=== PATIENT | female | born 1980 | race Caucasian/White ===

== ENCOUNTER 2016-07-02 15:12 | Outpatient (CLI) | payer OTHER | END 2016-07-02 15:13 | disposition home or self-care (01) | DX: Z01.812 Encounter for preprocedural laboratory examination (principal); N94.4 Primary dysmenorrhea; N92.0 Excessive and frequent menstruation with regular cycle ==

== ENCOUNTER 2016-07-09 09:27 | Outpatient (CLI) | payer OTHER | END 2016-07-09 09:28 | disposition home or self-care (01) | DX: Z01.812 Encounter for preprocedural laboratory examination (principal); N94.4 Primary dysmenorrhea; N92.0 Excessive and frequent menstruation with regular cycle ==

== ENCOUNTER 2016-07-11 09:25 | Day surgery (SDC) | payer OTHER ==
[2016-07-11] MEDS ORDERED: ceFAZolin 2 GM/50 ML 50 ML IV ONE (09:46)
[2016-07-11] MEDS ORDERED: LACTATED RINGERS 1,000 ML IV ONE ×2 (09:57→12:17)
[2016-07-11] MEDS ORDERED: ACETAMINOPHEN 1,000 MG/100 ML VIAL IV ONE (11:00)
[2016-07-11] MEDS ORDERED: PROPOFOL 200 MG/20 ML VIAL IVP ONE (11:00)
[2016-07-11] MEDS ORDERED: KETOROLAC 30 MG/ML VIAL IVP ONE (11:00)
[2016-07-11] MEDS ORDERED: ROCURONIUM 50 MG/5 ML VIAL IVP ONE (11:00)
[2016-07-11] MEDS ORDERED: ONDANSETRON 4 MG/2 ML VIAL IVP ONE (11:00)
[2016-07-11] MEDS ORDERED: fentaNYL 250 MCG/5 ML VIAL IVP ONE (11:00)
[2016-07-11] MEDS ORDERED: DEXAMETHASONE 4 MG/ML VIAL IVP ONE (11:00)
[2016-07-11] MEDS ORDERED: LIDOCAINE-MPF 2% 5 ML VIAL IM ONE (11:00)
[2016-07-11] MEDS ORDERED: BUPIVACAINE 0.25%-EPI 1:200000 PF 30 ML VIAL SUBQ ONE ×2 (11:20→13:33)
[2016-07-11] MEDS ORDERED: oxyCOD/ACETAMIN 5 MG/325 MG TABLET PO ONE (14:32)
== END 2016-07-11 09:26 | disposition home or self-care (01) ==
PROC: 0UTC4ZZ Resection of Cervix, Percutaneous Endoscopic Approach (ICD-10-PCS; 2016-07-11)
PROC: 0UT74ZZ Resection of Bilateral Fallopian Tubes, Percutaneous Endoscopic Approach (ICD-10-PCS; 2016-07-11)
PROC: 0TJB8ZZ Inspection of Bladder, Via Natural or Artificial Opening Endoscopic (ICD-10-PCS; 2016-07-11)
PROC: 0UT94ZZ Resection of Uterus, Percutaneous Endoscopic Approach (ICD-10-PCS; principal; 2016-07-11 10:30)
DX: N94.6 Dysmenorrhea, unspecified (principal); N92.0 Excessive and frequent menstruation with regular cycle; N72 Inflammatory disease of cervix uteri; N71.0 Acute inflammatory disease of uterus; F17.210 Nicotine dependence, cigarettes, uncomplicated
CPT/HCPCS: 52000; 58570; 58661; A9270; J0131; J0690; J3010; J7120